=== PATIENT | female | born 1965 | race African-American/Black ===

== ENCOUNTER 2025-01-08 18:56 | Emergency (ER) | payer OTHER ==
[2025-01-08 19:09] VITALS: BMI 24.7
[2025-01-08] MEDS ORDERED: TETRACAINE 0.5% OPHTH SOLN 2 ML BOTTLE ONE (20:58)
[2025-01-08] MEDS ORDERED: FLUORESCEIN NA 1 EA STRIP ONE ×3 (20:58→21:49)
[2025-01-08] MEDS: TETRACAINE 0.5% OPHTH SOLN 2 ML BOTTLE OS ONE (21:12)
[2025-01-08] MEDS: FLUORESCEIN NA 1 EA STRIP OD ONE (21:22)
[2025-01-08 22:56] VITALS: TEMP 98.7
[2025-01-09 00:07] VITALS: BP 168/99; PULSE 80; RESP 16
== END 2025-01-09 00:15 | disposition short-term general hospital (02) ==
LOC: JERFT 18:56 → JER 18:56
DX: H40.052 Ocular hypertension, left eye (principal)
CPT/HCPCS: 99285-25

== ENCOUNTER 2025-03-11 21:48 | Emergency (ER) | payer OTHER ==
[2025-03-11 21:54] VITALS: BP 154/92; PULSE 80; RESP 18; TEMP 97.9; BMI 27.8
[2025-03-11] MEDS ORDERED: AMOX TR/POT CLAV 875MG/125MG TABLETS (FP) ONE (22:18)
[2025-03-11] MEDS ORDERED: IBUPROFEN 600 MG TABLET (FP) PO ONE (22:18)
[2025-03-11] MEDS: IBUPROFEN 600 MG TABLET (FP) PO ONE (22:26)
[2025-03-11] MEDS: AMOX TR/POT CLAV 875MG/125MG TABLETS (FP) PO ONE (22:28)
== END 2025-03-11 22:34 | disposition home or self-care (01) ==
LOC: JERFT 21:48
DX: K03.81 Cracked tooth (principal); K02.9 Dental caries, unspecified; K08.89 Other specified disorders of teeth and supporting structures
CPT/HCPCS: 99283-25